=== PATIENT | female | born 1935 | race Caucasian/White ===

== ENCOUNTER 2019-01-17 19:56 | Observation (INO) | payer MEDICARE ==
[~2019-01-17] VITALS: Ht 160 cm; Wt 60.0 kg
[~2019-01-17 19:56] MED LIST: ASPI-1265 PO; DONE-46 PO; FOLI1TAB16 PO; LACT1CAP61 PO; MAGN400T28 PO; MULT-1179 PO; MULT-821 PO; NEPHC PO; UBID400C2 PO
[2019-01-17 20:26] LABS: CLARITY,URINE CLEAR (Clear); COLOR,URINE YELLOW (Yellow); GLUCOSE, URINE NEGATIVE (Neg); KETONES,URINE NEGATIVE (Neg); LEUKOCYTE ESTERASE ,URINE SMALL (Neg); NITRITES, URINE NEGATIVE (Neg); OCCULT BLOOD,URINE NEGATIVE (Neg); PROTEIN,URINE NEGATIVE (Neg); UA COLLECTION TYPE CLN CATCH MIDSTREAM; UROBILINOGEN,URINE 0.2 E.U/dL (0.2-1.0)
[2019-01-17 20:31] LABS: BACTERIA,URINE NONE SEEN /HPF (Neg); RBC,URINE NONE SEEN /HPF (0-2); SQUAMOUS EPITHELIAL CELL,UR FEW /LPF (FEW)
[2019-01-17 20:32] LABS: MUCUS STRANDS NONE SEEN /LPF (Neg)
[2019-01-17 20:34] LABS: BASOPHILS # (AUTO) 0.1 X10'3 (0-0.2); EOSINOPHILS # (AUTO) 0.1 X10'3 (0-0.9); EOSINOPHILS % (AUTO) 0.6 % (0-6); HEMOGLOBIN 13.5 g/dl (12.0-16.0); MEAN PLATELET VOLUME 9.2 FL (7.4-10.4); MONOCYTES # (AUTO) 0.7 X10'3 (0-0.9); NEUTROPHILS # (AUTO) 4.5 X10'3 (1.8-7.7)
[2019-01-17 20:36] LABS: BASOPHILS % (AUTO) 1.1 % (0-1); HEMATOCRIT 39.9 % (35.0-45.0); LYMPHOCYTES # (AUTO) 3.8 X10'3 (1.1-4.8); LYMPHOCYTES % (AUTO) 41.1 % (21-51); MEAN CORPUSCULAR HEMOGLOBIN 32.8 PG (27.0-31.0); MEAN CORPUSCULAR HGB CONC 33.9 g/dL (33.0-36.5); MEAN CORPUSCULAR VOLUME 96.7 FL (78-98); MONOCYTES % (AUTO) 8.1 % (2-12); NEUTROPHILS % (AUTO) 49.1 % (42-75); PLATELET COUNT 195 X10'3 (140-440); RED BLOOD COUNT 4.13 X10'6 (4.20-5.60); RED CELL DISTRIBUTION WIDTH 14.6 % (11.5-14.5); WHITE BLOOD COUNT 9.1 X10'3 (4.5-11.0)
[2019-01-17 20:41] LABS: ALANINE AMINOTRANSFERASE 19 U/L (12-78); ALBUMIN 3.8 G/DL (3.4-5.0); ALBUMIN/GLOBULIN RATIO 1.1 (1.1-1.5); ALKALINE PHOSPHATASE 57 IU/L (46-116); ANION GAP 9 (8-16); ASPARTATE AMINO TRANSFERASE 20 U/L (10-37); BILIRUBIN,TOTAL 0.7 MG/DL (0.1-1.0); BLOOD UREA NITROGEN 11 MG/DL (7-18); BUN/CREATININE RATIO 12.2 (6.6-38.0); CALCIUM 9.8 MG/DL (8.5-10.1); CHLORIDE 106 MMOL/L (99-107); GLUCOSE 108 MG/DL (70-104); POTASSIUM 3.3 MMOL/L (3.5-5.1); SODIUM 138 MMOL/L (135-145); TOTAL CARBON DIOXIDE 23.3 MMOL/L (24-32); TOTAL PROTEIN 7.2 G/DL (6.4-8.2); eGFR 60 ML/MIN
[2019-01-17] MEDS ORDERED: metoprolol tartrate 1mg/ml inj IV ONE (22:50)
[2019-01-17] MEDS ORDERED: DONE-46 PO (23:25)
[2019-01-17] MEDS ORDERED: ATOR40TA PO (23:25)
[2019-01-17] MEDS ORDERED: MEMA10TA21 PO (23:25)
[2019-01-17] MEDS ORDERED: CefTRIAXone/D5W-Rocephin 1gm 50 ML IV ONE (23:30)
[2019-01-17] MEDS ORDERED: mag hydrox/Alum hydrox/simeth 30ml oral suspension PO PRN (23:55)
[2019-01-17] MEDS ORDERED: ondansetron/PF 4mg/2ml inj IV PRN (23:55)
[2019-01-17] MEDS ORDERED: acetaminophen 325mg tablet PO PRN (23:55)
[2019-01-17] MEDS ORDERED: magnesium hydroxide 30ml (MOM) UD suspension PO PRN (23:55)
[2019-01-18] MEDS ORDERED: DONE10TA44 PO (00:09)
[2019-01-18 01:30] VITALS: BP 159/81
--- NOTE | 2019-01-18 01:33 | NUR ---
Received report Noris AQUINO. Will assume care.
[2019-01-18] MEDS: normal saline 1000ml 1,000 ML IV SCH ×2 (02:04→22:50)
[2019-01-18 06:04] LABS: BASOPHILS % (AUTO) 0.7 % (0-1); EOSINOPHILS # (AUTO) 0.1 X10'3 (0-0.9); EOSINOPHILS % (AUTO) 0.9 % (0-6); HEMATOCRIT 41.9 % (35.0-45.0); HEMOGLOBIN 14.3 g/dl (12.0-16.0); LYMPHOCYTES # (AUTO) 2.4 X10'3 (1.1-4.8); LYMPHOCYTES % (AUTO) 41.5 % (21-51); MEAN CORPUSCULAR HEMOGLOBIN 32.5 PG (27.0-31.0); MEAN CORPUSCULAR HGB CONC 34.2 g/dL (33.0-36.5); MEAN CORPUSCULAR VOLUME 95.1 FL (78-98); MEAN PLATELET VOLUME 8.4 FL (7.4-10.4); MONOCYTES # (AUTO) 0.5 X10'3 (0-0.9); MONOCYTES % (AUTO) 8.1 % (2-12); NEUTROPHILS # (AUTO) 2.8 X10'3 (1.8-7.7); NEUTROPHILS % (AUTO) 48.8 % (42-75); PLATELET COUNT 175 X10'3 (140-440); RED BLOOD COUNT 4.41 X10'6 (4.20-5.60); RED CELL DISTRIBUTION WIDTH 14.3 % (11.5-14.5); WHITE BLOOD COUNT 5.7 X10'3 (4.5-11.0)
[2019-01-18 06:13] LABS: ALANINE AMINOTRANSFERASE 16 U/L (12-78); ALBUMIN 3.4 G/DL (3.4-5.0); ALBUMIN/GLOBULIN RATIO 0.9 (1.1-1.5); ALKALINE PHOSPHATASE 55 IU/L (46-116); ANION GAP 10 (8-16); ASPARTATE AMINO TRANSFERASE 21 U/L (10-37); BILIRUBIN,TOTAL 0.5 MG/DL (0.1-1.0); BLOOD UREA NITROGEN 8 MG/DL (7-18); CALCIUM 9.4 MG/DL (8.5-10.1); CHLORIDE 110 MMOL/L (99-107); CREATININE 0.73 MG/DL (0.40-0.90); GLUCOSE 98 MG/DL (70-104); POTASSIUM 3.3 MMOL/L (3.5-5.1); SODIUM 145 MMOL/L (135-145); TOTAL CARBON DIOXIDE 24.8 MMOL/L (24-32); eGFR 76 ML/MIN
--- NOTE | 2019-01-18 06:30 | NUR ---
Patient in room [facility]. I have received report from KENIA Arnett and had the opportunity to ask questions and assume patient care.
[2019-01-18 07:00] VITALS: BP 142/82
[2019-01-18] MEDS ORDERED: ALEN70TA13 PO (07:39)
[2019-01-18] MEDS ORDERED: CefTRIAXone/D5W-Rocephin 1gm 50 ML IV SCH (08:00)
[2019-01-18] MEDS ORDERED: potassium CL 10mEq/100ml bag 100 ML IV PRN (08:20)
[2019-01-18] MEDS ORDERED: magnesium Cl slow-release 64mg tablet PO PRN (08:20)
[2019-01-18] MEDS ORDERED: magnesium 4gm in 100ml NS 100 ML IV PRN (08:20)
[2019-01-18] MEDS ORDERED: potassium Cl 20 mEq SR tablet PO PRN (08:20)
[2019-01-18] MEDS: atorvastatin 20mg tablet PO SCH (08:38)
[2019-01-18] MEDS: potassium Cl 20 mEq SR tablet PO PRN ×3 (08:38→19:49)
[2019-01-18] MEDS: memantine 5mg tablet PO SCH ×2 (08:39→19:49)
[2019-01-18] MEDS: heparin, porcine 5000 units/ml vial SQ SCH ×2 (08:39→19:49)
[2019-01-18 11:00] VITALS: BP 153/82
--- NOTE | 2019-01-18 18:22 | NUR ---
Problems reprioritized. Patient report given, questions answered & plan of care reviewed with KENIA Stanford.
[2019-01-18 20:00] VITALS: BP 143/80
[2019-01-18] MEDS ORDERED: donepezil 5mg tablet PO SCH (21:00)
--- NOTE | 2019-01-18 21:37 | NUR ---
Patient in room [facility]. I have received report from LEYLA Rubio and had the opportunity to ask questions and assume patient care. Addendum: 01/18/19 at 2139 by Caitlin Davis RN Amended: Links added.
[2019-01-19] VITALS: BP 167/92
[2019-01-19 06:10] LABS: BASOPHILS % (AUTO) 0.8 % (0-1); EOSINOPHILS % (AUTO) 0.7 % (0-6); HEMATOCRIT 38.8 % (35.0-45.0); HEMOGLOBIN 13.2 g/dl (12.0-16.0); LYMPHOCYTES % (AUTO) 31.1 % (21-51); MEAN CORPUSCULAR HEMOGLOBIN 32.6 PG (27.0-31.0); MEAN CORPUSCULAR HGB CONC 34.1 g/dL (33.0-36.5); MEAN CORPUSCULAR VOLUME 95.6 FL (78-98); MEAN PLATELET VOLUME 8.5 FL (7.4-10.4); MONOCYTES # (AUTO) 0.4 X10'3 (0-0.9); MONOCYTES % (AUTO) 5.8 % (2-12); NEUTROPHILS # (AUTO) 3.9 X10'3 (1.8-7.7); NEUTROPHILS % (AUTO) 61.6 % (42-75); PLATELET COUNT 165 X10'3 (140-440); RED BLOOD COUNT 4.06 X10'6 (4.20-5.60); RED CELL DISTRIBUTION WIDTH 14.4 % (11.5-14.5); WHITE BLOOD COUNT 6.4 X10'3 (4.5-11.0)
--- NOTE | 2019-01-19 06:14 | NUR ---
Problems reprioritized. Patient report given, questions answered & plan of care reviewed with KENIA Rubio. Addendum: 01/19/19 at 0615 by Caitlin Davis RN Amended: Links added.
--- NOTE | 2019-01-19 06:15 | NUR ---
Patient in room [facility]. I have received report from KENIA Stanford and had the opportunity to ask questions and assume patient care.
[2019-01-19 06:32] LABS: ALANINE AMINOTRANSFERASE 13 U/L (12-78); ALBUMIN 3.1 G/DL (3.4-5.0); ALKALINE PHOSPHATASE 53 IU/L (46-116); ANION GAP 10 (8-16); ASPARTATE AMINO TRANSFERASE 17 U/L (10-37); BILIRUBIN,TOTAL 0.4 MG/DL (0.1-1.0); BLOOD UREA NITROGEN 7 MG/DL (7-18); BUN/CREATININE RATIO 11.7 (6.6-38.0); CALCIUM 8.9 MG/DL (8.5-10.1); CHLORIDE 110 MMOL/L (99-107); GLUCOSE 93 MG/DL (70-104); POTASSIUM 3.7 MMOL/L (3.5-5.1); SODIUM 141 MMOL/L (135-145); TOTAL CARBON DIOXIDE 21.1 MMOL/L (24-32); TOTAL PROTEIN 6.3 G/DL (6.4-8.2); eGFR > 90 ML/MIN
[2019-01-19 07:00] VITALS: BP 164/91
[2019-01-19] MEDS: heparin, porcine 5000 units/ml vial SQ SCH (07:41)
[2019-01-19] MEDS: atorvastatin 20mg tablet PO SCH (07:41)
[2019-01-19] MEDS: memantine 5mg tablet PO SCH (07:41)
[2019-01-19] MEDS: normal saline 1000ml 1,000 ML IV SCH (08:45)
[2019-01-19 11:00] VITALS: BP 163/80
--- NOTE | 2019-01-19 12:00 | NUR ---
Patient discharge home via daughter and taken from unit via wheelchair and x1 staff. Patient alert, oriented and in no apparent distress at time of discharge. PIV removed with cannula intact. Patient's daughter took all belongings with her. Patient and daughter were given time for questions and answers and both stated an understanding of the instructions.
== END 2019-01-19 11:55 | disposition home or self-care (01) ==
LOC: ER 19:57 → EDBEDREQSVC 01-18 00:25 → SUR 3N 01-18 01:48 → INTOOBSV 01-18 01:48 → CMPBEDREQ 01-18 01:53
PROVIDERS: ADMIT Internal Medicine; ATTEND Internal Medicine
DX: R41.0 Disorientation, unspecified (principal); I10 Essential (primary) hypertension; Z95.1 Presence of aortocoronary bypass graft; Z90.710 Acquired absence of both cervix and uterus; M54.9 Dorsalgia, unspecified; G89.29 Other chronic pain; M19.90 Unspecified osteoarthritis, unspecified site; Z98.890 Other specified postprocedural states; F03.90 Unspecified dementia, unspecified severity, without behavioral disturbance, psychotic disturbance, mood disturbance, and anxiety; E78.5 Hyperlipidemia, unspecified; Z79.899 Other long term (current) drug therapy; Z80.1 Family history of malignant neoplasm of trachea, bronchus and lung; Z82.3 Family history of stroke; Z82.5 Family history of asthma and other chronic lower respiratory diseases; Z85.038 Personal history of other malignant neoplasm of large intestine; Z86.73 Personal history of transient ischemic attack (TIA), and cerebral infarction without residual deficits; Z87.11 Personal history of peptic ulcer disease; N39.0 Urinary tract infection, site not specified
CPT/HCPCS: 36415; 70450; 80053; 81001; 85025; 85610; 87081; 87088; 96361; 96365; 96366; 96372; 96375; 99284; G0378; J0696; J1644; J7030; 96374; 99285; J3490